=== PATIENT | male | born 1945 | race Caucasian/White ===

== ENCOUNTER → 2016-10-20 | Outpatient (CLI) | payer MEDICARE ==
--- NOTE | 2016-10-21 07:33 | RAD ---
CT of the head without contrast, 10/20/2016: History: Fall, head trauma There is moderate cerebral atrophy. There is a small cerebral lucency in the high left parietal region suggesting an old infarct. The lateral ventricles are mildly enlarged, probably on a compensatory basis. There is no shift of the midline structures. There is no evidence of acute intracranial hemorrhage or mass effect. IMPRESSION: 1. Cerebral atrophy. 2. 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 3. No acute intracranial abnormality is detected. PQRS Compliance Statement: One or more of the following individualized dose reduction techniques were utilized for this examination: 1. Automated exposure control 2. Adjustment of the mA and/or kV according to patient size 3. Use of iterative reconstruction technique
== END | disposition home or self-care (01) ==
LOC: CT 16:36
PROVIDERS: ATTEND Internal Medicine
DX: S09.90XD Unspecified injury of head, subsequent encounter (principal); G31.9 Degenerative disease of nervous system, unspecified; Z86.73 Personal history of transient ischemic attack (TIA), and cerebral infarction without residual deficits; W19.XXXD Unspecified fall, subsequent encounter
CPT/HCPCS: 70450